=== PATIENT | male | born 1935 | race Caucasian/White ===

== ENCOUNTER 2024-01-27 06:50 | Emergency (ER) | payer MEDICARE, OTHER ==
[~2024-01-27] VITALS: Ht 182.9 cm; Wt 96.0 kg
--- OUTSIDE RECORDS SUMMARY | 2024-01-27 06:58 | XMS ---
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 Radha has no Care Guidelines for this patient. Valeria VISIT COUNT (12 MO.) 2 [facility] Margarita Cisse (Tamara Mcdonald) [facility] 3 NOTE: Visits indicate total known visits. ED/[facility] [place] VISIT TRACKING (12 MO.) 01/27/2024 06[facility] COMPLAINT: - [facility]ARDIAC AR[facility] DIAGNOSES: - Acute pulmonary edema - Heart failure, unspecified - cough - Shortness of Breath [facility]2023 [facility] DIAGNOSES: - Heart failure, unspecified - Unspecified jaundice - Edema - fluid retention INPATIENT VISIT TRACKING (12 MO.) No inpatient visits to display in this time frame [email or web address]
[2024-01-27] MEDS ORDERED: KETAMINE in NS 50 MG/5 ML SYR IV ONE (07:00)
[2024-01-27] MEDS ORDERED: KETAMINE HCL IN NACL, ISO-OSM 100 ML IV SCH (07:00)
[2024-01-27] MEDS ORDERED: KETAMINE HCL IN NACL, ISO-OSM 100 ML IV ONE (07:06)
[2024-01-27] MEDS ORDERED: KETAMINE in NS 50 MG/5 ML SYR ONE (07:08)
[2024-01-27] MEDS ORDERED: FUROSEMIDE80 MG PO (07:09)
[2024-01-27] MEDS ORDERED: DILTIAZEM ER180 M2 PO (07:09)
[2024-01-27 07:10] LABS: BASOPHILS 0.6 % (0-2); EOSINOPHILS 0.6 % (0-6); HEMATOCRIT 46.1 % (35.0-50.0); LYMPHOCYTES 24.3 % (24-44); MCH 30.9 (27-36); MCHC 32.5 g/dl (30-36); MCV 95.2 fl (81-99); MONOCYTES 4.9 % (0-12); NEUTROPHILS 69.6 % (39-80); PLATELET COUNT 170 K/uL (140-440); RBC 4.85 M/ul (4.3-5.7); RDW 17.7 (10.5-15.0)
[2024-01-27] MEDS ORDERED: FUROSEMIDE20 MG PO (07:10)
[2024-01-27] MEDS ORDERED: POTASSIUM CHLO10 MEQ PO (07:10)
[2024-01-27] MEDS ORDERED: SPIRONOLACTONE50 MG PO (07:10)
[2024-01-27 07:17] LABS: INR 1.17 (0.80-1.30); PROTIME 14.5 Sec (11.2-14.2)
[2024-01-27] MEDS ORDERED: fentaNYL citrate 100 MCG/2 ML VIAL ONE (07:18)
[2024-01-27 07:19] LABS: PARTIAL THROMBOPLASTIN TIME 29.7 Sec (22.9-41.3)
[2024-01-27 07:29] LABS: ALBUMIN 3.3 g/dL (3.4-5.0); ALBUMIN/GLOBULIN RATIO 0.85 (1.1-2.4); ANION GAP 21.5 (7-21); BUN/CREATININE RATIO 20.35 (6.0-28.6); CALCIUM 9.3 mg/dL (8.5-10.1); CREATININE, SERUM 2.85 mg/dL (0.70-1.30); MAGNESIUM 2.7 mg/dL (1.8-2.4); POTASSIUM 4.5 mmol/L (3.5-5.1); PROTEIN, TOTAL 7.2 g/dL (6.4-8.2)
[2024-01-27] MEDS ORDERED: fentaNYL citrate 500 MCG in DEXTROSE 5% 90 ML IV SCH (07:30)
[2024-01-27 08:01] LABS: BASE EXCESS, BLOOD GAS -11.4 mmol/L (-2-2); HCO3, BLOOD GAS 16.1 mmol/L (22-26); O2 SATURATION, BLOOD GAS 98.1 % (95.0-100.0); OXYGEN RECEIVED, BLOOD GAS 60%; PCO2, BLOOD GAS 37.8 mmHg (35-45); PH, BLOOD GAS 7.23 (7.35-7.45); PO2, BLOOD GAS 98 mmHg (80-100); TOTAL CO2, BLOOD GAS 17.4
[2024-01-27] MEDS ORDERED: SODIUM CHLORIDE 0.9% 1,000 ML IV PRN ×2 (08:15)
[2024-01-27] MEDS ORDERED: VASOPRESSIN 20 UNITS/ML VIAL IV ONE (08:20)
[2024-01-27] MEDS ORDERED: VASOPRESSIN 20 UNITS/ML VIAL ONE (08:24)
[2024-01-27] MEDS ORDERED: NOREPINEPHRINE BITARTRATE 250 ML IV ONE (09:05)
[2024-01-27] MEDS ORDERED: NOREPINEPHRINE BITARTRATE 250 ML IV SCH (09:30)
[2024-01-27] MEDS ORDERED: fentaNYL citrate 100 MCG/2 ML VIAL IV PRN ×3 (10:45→11:00)
--- NOTE | 2024-01-27 12:01 | EKG ---
[facility] [address] [place] [address] Signed Undetermined rhythm Left axis deviation Nonspecific intraventricular block Possible Lateral infarct , age undetermined Inferior infarct , age undetermined Abnormal ECG When compared with ECG of 27-JAN-2024 06:51, (Unconfirmed) Current undetermined rhythm precludes rhythm comparison, needs review Confirmed by Oriana Esqueda MD ([id number]) on 01/27/2024 12:00:50 PM Electronically Signed By: ORIANA ESQUEDA 01/27/24 1201 PATIENT NAME: GINETTE HOPKINS Electrocardiogram DATE OF : [birth year] PHYSICIAN: ORIANA ESQUEDA REPORT #: [id number] REPORT IS CONFIDENTIAL AND NOT TO BE RELEASED WITHOUT AUTHORIZATION
--- NOTE | 2024-01-27 12:01 | EKG ---
[facility] [address] [place] [address] Signed Wide QRS rhythm with premature ventricular complexes or fusion complexes Left axis deviation Nonspecific intraventricular block Minimal voltage criteria for LVH, may be normal variant ( [place] product ) Possible Lateral infarct , age undetermined Inferior infarct , age undetermined Abnormal ECG No previous ECGs available Confirmed by Oriana Esqueda MD ([id number]) on 01/27/2024 12:00:45 PM Electronically Signed By: ORIANA ESQUEDA 01/27/24 1201 PATIENT NAME: GINETTE HOPKINS Electrocardiogram DATE OF : [birth year] PHYSICIAN: ORIANA ESQUEDA REPORT #: [id number] REPORT IS CONFIDENTIAL AND NOT TO BE RELEASED WITHOUT AUTHORIZATION
[2024-01-27 14:00] VITALS: BP 48/35
[2024-01-28] MEDS ORDERED: KETAMINE in NS 50 MG/5 ML SYR IV ONE (10:45)
[2024-01-28] MEDS ORDERED: KETAMINE HCL IN NACL, ISO-OSM 100 ML IV SCH (10:45)
== END 2024-01-27 14:00 ==
LOC: ED 06:50
PROVIDERS: Emergency Medicine; Internal Medicine
DX: I46.9 Cardiac arrest, cause unspecified (principal); R57.0 Cardiogenic shock; I48.91 Unspecified atrial fibrillation; Z88.0 Allergy status to penicillin; Z79.899 Other long term (current) drug therapy
CPT/HCPCS: 36415; 36600; 70450; 71045; 71260; 80053; 82803; 83735; 83880; 84484; 85025; 85379; 85610; 85730; 87502; 93005; 93010; 99285-25; J3010; J3490; J7030; Q9967; U0002